=== PATIENT | male | born 1960 | race Caucasian/White ===

== ENCOUNTER 2019-01-02 12:06 | Outpatient (CLI) | payer MEDICAID ==
[~2019-01-02] VITALS: Ht 175.3 cm; Wt 54.9 kg
--- NOTE | ~2019-01-02 | HEMODYNAMI ---
PATIENT:ALYSSA GUPTA MEDICAL RECORD: [id number] : 56 LOCATION:[facility] ADMISSION DATE: 01/02/19 Generatedon:01/02/201914:51 Patient name: ALYSSA GUPTA Patient #: [id number] SSN: : 1 1960 Date of study: 01/02/2019 Page: Of Hemodynamic Procedure Report Patient Data Patient Demographics Procedure consent was obtained First Name: ALYSSA Gender: Male Last Name: ALONSO : 1960 Patient #: [id number] Age: 58 year(s) Race: Unknown Additional ID: [id number] Contact details [address]: [address] [place] [address] State: [place] City: [place] Zip code: [address] Past Medical History Allergies: No known allergies Admission Admission Data Admission Date: 01/02/2019 Admission Time: 12:06 Procedure Procedure Types Cath Procedure Diagnostic Procedure LHC LHC w/Coronaries PCI Procedure Coronary Stent Coronary Stent Initial Procedure Description Procedure Date Procedure Date: 01/02/2019 Procedure Start Time: 14:24 Procedure End Time: 14:47 Procedure Staff Name Function Guillermo Montoya MD Performing Physician Ena Garnica RT Monitor Agustina Garcia RT Scrub Manoj Araiza RT Scrub Kaleb Murray RN Nurse Procedure Data Cath Procedure Fluoroscopy Diagnostic fluoroscopy Total fluoroscopy Time: 4.9 time: 4.9 min min Diagnostic fluoroscopy Total fluoroscopy dose: 427 dose: 427 mGy mGy Contrast Material Contrast Material Type Amount (ml) Isovue 300 111 Entry Location Entry Primary Successful Side Size Upsize Upsize Entry Closure Succes sful Closure Location (Fr) 1 (Fr) 2 (Fr) Remarks Device Remarks Femoral Right 5 Fr 6 Fr Exoseal artery Short Estimated blood loss: 10 ml Diagnostic catheters Device Type Used For End Catheter Placement MULTIPACK JL 4.0 5Fr catheter MULTIPACK 3DRC 5Fr Procedure catheter MULTIPACK Pigtail 5 Fr Procedure catheter Procedure Complications No complications Procedure Medications Medication Administration Route Dosage Oxygen etCO2 Nasal cannula 2 l/min Heparin Flush Bag added to field 2 bags (1000units/500ml NS) 0.9% NaCl I.V. 100 ml/hr Lidocaine 2% added to field 20 Fentanyl I.V. 50 mcg Versed I.V. 1 mg Fentanyl I.V. 50 mcg Versed I.V. 1 mg Heparin Bolus I.V. 4000 units Integrilin (Bolus I.V. 5 ml 2mg/ml) Integrilin (Bolus wasted 5 ml 2mg/ml) Fentanyl I.V. 50 mcg Plavix P.O. 600 mg Hemodynamics Rest Heart Rate: 75 (bpm) Pressure Samples Time Site Value (mmHg) Purpose Heart Use Rate(bpm) 14:31 LV 124/6,6 EDP 75 Snapshots Pre Cath Intra NCS Post Cath Vital Signs Time Heart Resp SPO2 etCO2 NIBP (mmHg) Rhythm Pain Sedation Rate (ipm) (%) (mmHg) Status Level (bpm) 14:03:02 71 18 99 0 149/88(112) NSR 0 (11) 10(A) , No pain 14:07:16 75 16 100 26.3 132/88(100) NSR 0 (11) 10(A) , No pain 14:11:24 73 17 98 0 119/74(94) NSR 0 (11) 10(A) , No pain 14:15:25 73 16 97 21.8 131/88(108) NSR 0 (11) 10(A) , No pain 14:19:33 74 16 99 32.3 114/81(94) NSR 0 (11) 10(A) , No pain 14:23:35 69 17 99 34.6 121/79(96) NSR 0 (11) 10(A) , No pain 14:27:34 77 16 99 36.1 126/91(107) NSR 0 (11) 9(A) , No pain 14:31:40 74 17 99 32.4 114/79(95) NSR 0 (11) 9(A) , No pain 14:35:42 74 17 99 18 114/76(90) NSR 0 (11) 9(A) , No pain 14:39:45 73 16 99 33.1 110/74(88) NSR 0 (11) 9(A) , No pain 14:43:45 72 16 99 36.1 117/78(96) NSR 0 (11) 9(A) , No pain 14:47:47 74 17 99 30.8 128/81(94) NSR 0 (11) 9(A) , No pain Medications Time Medication Route Dose Verified Delivered Reason Notes Effectiveness by by 14:02:02 Oxygen etCO2 2 Guillermo Manuel Per physician Nasal l/min St Josh Murray RN cannula 14:02:10 Heparin Flush added 2 Guillermo Kaleb used for Bag to bags St Josh Murray RN procedure (1000units/500ml field CHARLES NS) 14:02:18 0.9% NaCl I.V. 100 Guillermo Kaleb Per physician ml/hr St Josh Murray RN, MD 14:02:29 Lidocaine 2% added 20ml Guillermo Manuel for local to vial St Josh Murray RN anesthetic field CHARLES 14:23:23 Fentanyl I.V. 50 Guillermo Kaleb for sedation [facility] Josh Murray RN, MD 14:23:30 Versed I.V. 1 mg Guillermo Manuel for sedation St Josh Murray RN, MD 14:31:35 Fentanyl I.V. 50 Guillermo Oviedoy for sedation [facility] Josh Murray RN, MD 14:31:39 Versed I.V. 1 mg Guillermo Manuel for sedation St Josh Murray RN, MD 14:34:01 Heparin Bolus I.V. 4000 Guillermo Manuel for units St Josh Murray RN anticoagulation 14:34:11 Integrilin I.V. 5 ml Guillermo Manuel for (Bolus 2mg/ml) St Josh Murray RN antiplatelet MD therapy 14:37:26 Fentanyl I.V. 50 uGillermo Manuel for sedation [facility] Josh Murray RN, MD 14:46:59 Integrilin wasted 5 ml Guillermo Manuel for (Bolus 2mg/ml) St Josh Murray RN antiplatelet MD therapy 14:48:30 Plavix P.O. 600 Guillermo Manuel for mg St Josh Murray RN antiplatelet MD therapy Procedure Log Time Note 13:18:01 Diagnostic Cath Status : Elective 13:20:47 Kaleb Murray RN sent for patient. Start room use. 13:20:48 Time tracking: Regular hours (M-F 7:00 - 5:00) 13:20:52 Plan of Care:Hemodynamics will remain stable., Cardiac rhythm will remain stable., Comfort level will be maintained., Respiratory function will remain adequate., Patient/ family verbilizes understanding of procedure., Procedure tolerated without complication., Recovers from procedure without complications.. 13:55:54 Patient received from Pre/Post Procedure Room to CCL 2 Alert and oriented. Tansferred to table in Supine position. 13:55:56 Warm blankets applied, and nilson hugger turned on for patient comfort. 13:55:56 Correct patient and procedure confirmed by team. 13:55:58 Signed procedure consent form obtained from patient. 13:55:59 ECG and BP/O2 sat monitors applied to patient. 13:56:01 Full Disclosure recording started 13:56:47 H&P Date Dictated: 12/18/2018 Within 30 days and on chart., H&P Addendum completed by physician on day of procedure. (MUST COMPLETE FOR ALL OUTPATIENTS). 13:56:49 Pre-procedure instructions explained to patient. 13:56:50 Pre-op teaching completed and patient verbalized understanding. 13:56:53 Family in patients room. 13:56:55 Patient NPO since Midnight. 13:58:12 Patient allergic to No known allergies 13:58:14 Is the patient allergic to Iodine/contrast media? No. 13:58:15 Is patient on blood thinner?No 13:58:18 Patient diabetic? No. 13:58:22 Previous problem with sedation/anesthesia? No ? 13:58:28 Snore? Yes 13:58:30 Sleep apnea? No 13:58:31 Deviated septum? No 13:58:32 Opens mouth fully? Yes 13:58:32 Sticks out tongue? Yes 13:58:39 Airway obstruction? Yes possible COPD 13:58:42 Dentures? No ? 13:58:45 Pre procedure: right dorsailis pedis pulse 2+ Normal; easily identifiable; not easily obliterated 13:58:47 Patient pain scale 0/10 ?. 13:58:53 IV patent on arrival in left forearm with 0.9% NaCl at KVO. 13:58:55 Lab results completed and on chart. 13:58:58 Right groin area was prepped with chlora-prep and draped in sterile fashion 13:58:59 Alarms reviewed by R. N. 13:58:59 Sharps counted by scrub and verified by R.N. 13:59:03 Use device set Femoral Dx 13:59:03 ACIST Syringe (68078) opened to sterile field. 13:59:04 Bag Decanter (2002S) opened to sterile field. 13:59:04 Medline Cath Pack ([id number]) opened to sterile field. 13:59:05 DIAGNOSTIC WIRE .035 260cm J wire (455361) opened to sterile field. 13:59:06 ACIST Hand Control (05042) opened to sterile field. 13:59:07 ACIST Manifold (44870) opened to sterile field. 13:59:08 DIAGNOSTIC Multipack 5Fr catheter set (QU5130) opened to sterile field. 13:59:10 SHEATH 5FR Henrietta (KCT020) opened to sterile field. 13:59:13 Tegaderm 4 x 4 (1626W) opened to sterile field. 14:01:53 Vital chart was started 14:02:02 Oxygen 2 l/min etCO2 Nasal cannula was administered by Kaleb Murray RN; Per physician; 14:02:10 Heparin Flush Bag (1000units/500ml NS) 2 bags added to field was administered by Kaleb Murray RN; used for procedure; 14:02:18 0.9% NaCl 100 ml/hr I.V. was administered by Kaleb Murray RN; Per physician; 14:02:29 Lidocaine 2% 20ml vial added to field was administered by Kaleb Murray RN; for local anesthetic; 14:13:38 Physician arrived 14:13:38 --------ALL STOP TIME OUT------ 14:13:38 Final Timeout: patient, procedure, and site verified with staff and physician. All members of the team are in agreement. 14:13:41 Right groin site verified by team. 14:13:47 Fire Safety Assessment: A--An alcohol-based skin anteseptic being used preoperatively., C--Open oxygen or nitrous oxide is being used., D--An ESU, laser, or fiber-optic light is being used. 14:13:56 Physical assessment completed. ASA score P 2 - A patient with mild systemic disease as per Guillermo Montoya MD. 14:14:00 Sedation plan: IV Moderate Sedation Medication:Versed, Fentanyl 14:21:59 Zero performed for pressure channel P1 14:23:23 Fentanyl 50 mcg I.V. was administered by Kaleb Murray RN; for sedation; 14:23:30 Versed 1 mg I.V. was administered by Kaleb Murray RN; for sedation; 14:24:11 Procedure started. 14:24:28 Local anesthetic to right femoral artery with Lidocaine 2% by Guillermo Montoya MD.INITIAL ACCESS ONLY 14:24:37 A 5 Fr sheath was inserted into the Right Femoral artery 14:26:10 A MULTIPACK JL 4.0 5Fr catheter was advanced over the wire and used for . 14:26:18 LCA angiography performed. 14:27:26 Catheter removed. 14:27:34 A MULTIPACK 3DRC 5Fr catheter was advanced over the wire and used for Procedure. 14:28:31 RCA angiography performed. 14:29:22 Catheter removed. 14:29:31 A MULTIPACK Pigtail 5 Fr catheter was advanced over the wire and used for Procedure. 14:30:49 LV gram done using GILES 14:31:35 Fentanyl 50 mcg I.V. was administered by Kaleb Murray RN; for sedation; 14::39 Versed 1 mg I.V. was administered by Kaleb Murray RN; for sedation; 14:32:52 GUIDE 6FR HS I catheter (LA6HSI) opened to sterile field. 14:32:52 SHEATH 6FR Henrietta (RXV647) opened to sterile field. 14:32:53 WHISPER 300cm guide wire ([id number]) opened to sterile field. 14:32:53 INFLATOR Merit BasixCompak (CM2767) opened to sterile field. 14:33:01 Proceeding to intervention. 14:33:11 Sheath upsized to a 6 Fr Short. 14:33:21 6 Fr HS1 guide catheter was inserted over the wire 14:33:30 Whisper wire advanced. 14:33:32 Wire advanced across lesion. 14:34:01 Heparin Bolus 4000 units I.V. was administered by Kaleb Murray RN; for anticoagulation; 14:34:11 Integrilin (Bolus 2mg/ml) 5 ml I.V. was administered by Kaleb Murray RN; for antiplatelet therapy; 14:37:26 Fentanyl 50 mcg I.V. was administered by Kaleb Murray RN; for sedation; 14:39:11 Place stent Inflation Number: 1 A INTEGRITY OTW 3.5 X 12 stent ([id number]) was prepped and advanced across the Dist RCA. The stent was deployed at 14 DARLEEN for 0:22 (min:sec). 14:40:10 Stent catheter was removed intact over wire. 14:42:17 Place stent Inflation Number: 1 A INTEGRITY OTW 3.0 X 18 stent ([id number]) was prepped and advanced across the Mid RCA. The stent was deployed at 14 DARLEEN for 0:27 (min:sec). 14:43:54 EXOSEAL 6Fr (EX600) opened to sterile field. 14:43:59 Wire removed. 14:44:00 Guide catheter removed. 14:44:10 Sheath removed intact; hemostasis achieved with Exoseal to the Right Femoral artery. 14:44:12 Procedure ended.(Physican Out) 14:44:22 Fluoroscopy time 04.90 minutes. 14:44:26 Fluoroscopy dose: 427 mGy 14:44:26 Flurop Dose total: 427 14:46:39 Contrast amount:Isovue 300 111ml. 14:46:41 Sharps counted by scrub and verified by R.N. 14:46:50 Insertion/operative site no bleeding no hematoma. 14:46:53 Post right femoral artery:stable 14:46:55 Post Procedure Pulses reassessed and unchanged 14:46:57 Post-procedure physical assessment completed. ASA score P 2 - A patient with mild systemic disease as per Guillermo Montoya MD. 14:46:59 Integrilin (Bolus 2mg/ml) 5 ml wasted was administered by Kaleb Murray RN; for antiplatelet therapy; 14:47:00 Post procedure rhythm: unchanged. 14:47:03 Estimated blood loss: 10 ml 14:47:05 Post procedure instruction explained to patient.Patient verbalizes understanding. 14:47:22 Procedure type changed to Cath procedure, Diagnostic procedure, LHC, LHC w/Coronaries, PCI procedure, Coronary Stent, Coronary Stent Initial 14:47:23 Procedure and supply charges have been captured, reviewed, submitted and are correct. 14:47:39 Procedure Complication : No complications 14:47:41 Vital chart was stopped 14:47:42 See physician's report for complete and final results. 14:47:44 Report given to Pre/Post Procedure Room. 14:47:47 Patient transfered to Pre/Post Procedure Room with Stretcher. 14:47:50 Procedure ended. 14:47:50 Full Disclosure recording stopped 14:47:53 End room use (Document Last) 14:47:53 End room use (Document Last) 14:48:30 Plavix 600 mg P.O. was administered by Kaleb Murray RN; for antiplatelet therapy; Intervention Summary Intervention Notes Time ActionType Lesion and Equipment Action# Pressure Duration Attributes Used 14:39:11 Place stent Dist RCA INTEGRITY 1 14 00:22 OTW 3.5 X 12 stent ([id number]) 14:42:17 Place stent Mid RCA INTEGRITY 1 14 00:27 OTW 3.0 X 18 stent ([id number]) Device Usage Item Name Manufacture Quantity Catalog Hospital Part Current Minimal L ot# / Number Charge Number Stock Stock Serial# Code ACIST Acist 1 89735 563184 032446 445006 20 Syringe Medical (72830) Systems Inc Bag Microtek 1 2001S 032262 81747 170509 5 Decanter Medical Inc. () Medline Medline 1 [id number] 202880 11541 074031 5 Cath Pack ([id number]) DIAGNOSTIC St Noel 1 257899 003219 046187 939825 30 WIRE .035 260cm J wire (873586) ACIST Hand Acist 1 43150 845391 528862 090724 5 Control Medical (63057) Systems Inc ACIST Acist 1 18457 913618 824732 343917 5 Manifold Medical (65888) Systems Inc DIAGNOSTIC Cardinal 1 VO9421 766120 24359 582463 30 Multipack Health 5Fr catheter set (RL7293) SHEATH 5FR Terumo 1 AQJ563 110122 685782 286367 5 Henrietta (PUU439) Tegaderm 4 3M 1 1626W 745887 372050 697117 5 x 4 (1626W) MULTIPACK Cardinal 1 989677 5 JL 4.0 5Fr Health catheter MULTIPACK Cardinal 1 740874 5 3DRC 5Fr Health catheter MULTIPACK Cardinal 1 875034 5 Pigtail 5 Health Fr catheter GUIDE 6FR Medtronic 1 LA6HSI 539634 91138 441438 1 HS I catheter (LA6HSI) SHEATH 6FR Terumo 1 PPJ357 071145 161055 236886 40 Henrietta (HYW596) WHISPER Riojas 1 [id number] 550693 297341 508632 5 300cm guide Vascular wire ([id number]) INFLATOR Merit 1 KO3720 600756 030015 888826 15 [facility] Medical BasixCompak (SM4329) INTEGRITY Medtronic 1 [id number] 047022 952385 801902 1 0 [id number] OTW 3.5 X 12 stent ([id number]) INTEGRITY Medtronic 1 [id number] 580737 129526 061619 1 0 [id number] OTW 3.0 X 18 stent ([id number]) EXOSEAL 6Fr Cardinal 1 EX600 717907 648109 046097 10 (EX600) Health Signature Audit [place] Stage Time Signature Unsigned Intra-Procedure 01/02/2019 Ena Garnica 2:51:24 PM RT(R) Signatures Monitor : Ena Garnica Signature : RT Date : Time : [id number] [place] [address]
[~2019-01-02 12:06] MED LIST: BAYER ASPIRIN325 MG PO; CATAPRES0.1 MG PO; KLONOPIN1 MG; MAGNESIUM GLUC500 M1 PO; MULTIPLE VITAMI1 TA1 PO; NORVASC10 MG PO; PLAVIX75 MG PO; PRINIVIL20 MG PO
[2019-01-02] MEDS ORDERED: TOPROL XL50 MG PO (12:20)
[2019-01-02 12:25] VITALS: BP 126/89; BMI 17.9
[2019-01-02 12:47] LABS: BASOPHILS 1.1 % (0-2); EOSINOPHILS 1.4 % (0-7); HEMATOCRIT 38.7 % (42.0-54.0); HEMOGLOBIN 13.1 g/dL (13.5-17.5); IMMATURE GRANULOCYTES 0.2 % (0-5); LYMPHOCYTES 34.5 % (15-50); MCH 28.2 pg (26.0-34.0); MCHC 33.9 g/dL (31.0-37.0); MCV 83.2 fL (80.0-100.0); MEAN PLATELET VOLUME 9.1 fL (7.4-10.4); MONOCYTES 8.8 % (2-11); RBC 4.65 10x6/uL (4.20-6.10); RDW 17.7 % (11.5-14.5); WBC 8.8 10x3/uL (4.8-10.8)
[2019-01-02 12:49] LABS: PLATELET COUNT 352 10x3/uL (130-400)
[2019-01-02 13:02] LABS: CALC OSMOLALITY 274 mosm/kg (275-300); CALCIUM 8.8 mg/dL (8.5-10.1); CHLORIDE - SERUM 101 mmol/L (98-107); GLUCOSE 83 mg/dL (74-106); POTASSIUM - SERUM 4.4 mmol/L (3.5-5.1); SODIUM 137 mmol/L (136-145); UREA NITROGEN 17 mg/dL (7-18); eGFR NON AFRICAN AMERICAN 81 mL/min (90-120)
--- NOTE | 2019-01-02 15:25 | NUR ---
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 VS WNL. RIGHT GROIN STABLE WITH FEMSTOP ON. HAS GOTTEN OUT OF BED TO USE BR WHEN I LEFT THE ROOM. ENCOURAGED THE IMPORTANC OF BR TILL 8PM. CALL LIGHT IN REACH. WILL CONT. PLAN OF CARE.
[2019-01-02 15:29] VITALS: BP 141/92; BMI 17.9
--- NOTE | 2019-01-02 16:46 | NUR ---
FEMSTOP DCD WITHOUT BLEEDING OR HEMATOMA NOED.
[2019-01-02 17:44] VITALS: BP 136/91
--- NOTE | 2019-01-02 19:37 | NUR ---
RESUMED CARE OF PT, LYING IN BED RESPIRATIONS EVEN AND UNLABORED ON ROOM AIR. LEFT FOREARM INFUSING NS @ 100. 66 SR ON TELEMETRY. RIGHT GROIN WNL, PEDAL PULSE PALPABLE. BEDREST UP AT 1999. NO NEEDS VOICED AT THIS TIME. CALL LIGHT IN REACH. SEE NURSE ASSESSMENT.
[2019-01-02 20:00] VITALS: BP 126/82
[2019-01-03 00:36] VITALS: BP 122/79
[2019-01-03 04:00] VITALS: BP 121/75
[2019-01-03 07:49] VITALS: BP 130/92
[2019-01-03] MEDS ORDERED: PLAVIX75 MG PO (09:28)
[2019-01-03 10:02] VITALS: Ht 175.3 cm; Wt 54.9 kg
--- NOTE | 2019-01-03 10:27 | MORECARE ---
CASE MANAGEMENT DISCHARGE SUMMARY PATIENT: ALYSSA GUPTA UNIT: [id number] ADM DATE: 01/02/19 AGE: 58 : 56 SEX: M ROOM/BED: D.2116 AUTHOR: LAURA GARCIA PHYSICIAN: REFERRING PHYSICIAN: JAY POTTS MD DATE OF SERVICE: 01/03/19 Discharge Plan Patient Name: [facility]YSSA [facility] [facility] 1960 Planned Disposition: Home Anticipated Discharge Date: 01/03/19 Discharge Date: Expected LOS: 1 Initial Reviewer: [email or web address] Initial Review Date: 01/03/2019 Generated: 01/03/19 11:27 am Patient Name: ALYSSA GUPTA Page 18601 at 1027 All edits/amendments must be made on the electronic document DICTATION DATE: 01/03/19 1027 MANUFACTURING PLANT TECHNICIAN: TIFFANY 01/03/19 1027 RPT#: [id number] DC DATE: STATUS: REG I [facility] [address] [place] [address] END OF REPORT
--- NOTE | 2019-01-03 11:08 | MORECARE ---
CASE MANAGEMENT DISCHARGE SUMMARY PATIENT: ALYSSA GUPTA UNIT: [id number] ADM DATE: 01/02/19 AGE: 58 : 56 SEX: M ROOM/BED: D.2116 AUTHOR: LAURA GARCIA PHYSICIAN: REFERRING PHYSICIAN: JAY POTTS MD DATE OF SERVICE: 01/03/19 Discharge Plan Patient Name: ALYSSA GUPTA [facility] [facility] 1960 Planned Disposition: Home Anticipated Discharge Date: 01/03/19 Discharge Date: Expected LOS: 1 Initial Reviewer: [email or web address] Initial Review Date: 01/03/2019 Generated: 01/03/19 12:07 pm DCPIA - Discharge Planning Initial Assessment Updated by [email or web address]: Unruly Dixon on 01/03/19 11:01 am * Is the patient Alert and Oriented? Yes * How many steps to enter\exit or inside your home? * PCP RIGOBERTO GRANT FOR DR. TY IN [place] * Pharmacy [facility] * Preadmission Environment Home Alone * ADLs Independent * Equipment Cane * Other Equipment NO MEDICAL EQUIPMENT PROVIDER PREFERENCE * List name and contact numbers for known caregivers / representatives who currently or will assist patient after discharge: CASA WATTS, SISTER, * Verbal permission to speak to the caregivers and representatives has been obtained from the patient. N/A * Community resources currently utilized None * Please name any agencies selected above. NONE * Additional services required to return to the preadmission environment? No * Can the patient safely return to the preadmission environment? Yes * Has this patient been hospitalized within the prior 30 days at any hospital? No Last DP export: 01/03/19 9:27 am Patient Name: ALYSSA GUPTA Page 41958 at 1108 All edits/amendments must be made on the electronic document DICTATION DATE: 01/03/191106 POLE FRAME CONSTRUCTION WORKER: TIFFANY 01/03/191106 RPT#: [id number] DC DATE: STATUS: REG [facility] [address] [place] [address] END OF REPORT
--- NOTE | 2019-01-03 11:23 | MORECARE ---
CASE MANAGEMENT DISCHARGE SUMMARY PATIENT: ALYSSA GUPTA UNIT: [id number] ADM DATE: 01/02/19 AGE: 58 : 56 SEX: M ROOM/BED: D.2116 AUTHOR: RADHA,DOC PHYSICIAN: REFERRING PHYSICIAN: JAY POTTS MD DATE OF SERVICE: 01/03/19 Discharge Plan Patient Name: ALYSSA GUPTA Facility: [facility]:[place] : 1960 Planned Disposition: Home Anticipated Discharge Date: 01/03/19 Discharge Date: Expected LOS: 1 Initial Reviewer: [email or web address] Initial Review Date: 01/03/2019 Generated: 01/03/19 12:23 pm Comments DCP- Discharge Planning Updated by [email or web address]: Unruly Dixon on 01/03/19 10:[address] Patient Name: ALYSSA GUPTA Admission Status: Elective Accout number: [id number] Admission Date: 01-02-2019 : 1960 Admission Diagnosis: Attending: JAY POTTS Current LOS: 1 Anticipated DC Date: 01-03-2019 Planned Disposition: Home Primary Insurance: MEDICAID [place] Discharge Planning Comments: CM MET WITH PT IN ROOM TO DISCUSS DISCHARGE PLANNING AND NEEDS. PT REPORTS LIVING AT HOME INDEPENDENTLY AND ALONE IN [place] [facility] WITH NO RUNNING WATER OR ELECTRICITY. PT HAULS WATER FROM [employer], USES GENERATOR FOR ELECTRICTY AND PROPANE HEATER FOR HEAT. PT HAS A CANE WITH NO MEDICAL EQUIPMENT PROVIDER PREFERENCE. PT HAS NO OUTSIDE SERVICES ASSISTING IN THE HOME. CM DISCUSSED AVAILABILITY OF HOME HEALTH, REHAB SERVICES AND MEDICAL EQUIPMENT. PT DENIES DISCHARGE NEEDS OTHER THAN NEEDING RIDE HOME. PT REPORTS THE [employer] BLADDER CHANGER GAVE HIM A CARD WITH THE PHONE NUMBER TO CALL AND THE NURSE TOOK IT AND HE DOES NOT HAVE THE NUMBER TO CALL FOR [facility]. PT ASKED CM TO CALL MEDICAID TRANSPORTATION AND OBTAIN A RIDE HOME FOR HIM. CM CALLED [facility], , WAS NOTIFIED BY [facility] THAT CM WILL NEED TO CALL PROVIDER, [facility] [address]. CM CALLED [facility] [address], , SPOKE TO RO WHO ADVISED THAT THE TRANSPORT WILL NEED TO BE SCHEDULED WITH [facility]. CM [facility] MEDICAID TRANSPORT, [facility] SCHEDULED [facility] FOR TODAY. PT NOTIFIED AND IN AGREEMENT AND WILL WAIT IN ROOM. MEDICAID BUS WILL CALL NURSES STATION WHEN THEY ARRIVE DOWNSTAIRS TO [facility] PT TODAY FOR TRANSPORT HOME. Data Warehouse Architect: Unruly Dixon DCPIA - Discharge Planning Initial Assessment Updated by [email or web address]: Unruly Dixon on 01/03/19 11:01 am * Is the patient Alert and Oriented? Yes * How many steps to enter\exit or inside your home? * PCP RIGOBERTO GRANT FOR DR. TY IN [place] * Pharmacy [facility] * Preadmission Environment Home Alone * ADLs Independent * Equipment Cane * Other Equipment NO MEDICAL EQUIPMENT PROVIDER PREFERENCE * List name and contact numbers for known caregivers / representatives who currently or will assist patient after discharge: CASA WATTS, SISTER, * Verbal permission to speak to the caregivers and representatives has been obtained from the patient. N/A * Community resources currently utilized None * Please name any agencies selected above. NONE * Additional services required to return to the preadmission environment? No * Can the patient safely return to the preadmission environment? Yes * Has this patient been hospitalized within the prior 30 days at any hospital? No Last DP export: 01/03/19 10:07 am Patient Name: ALYSSA GUPTA Page 48923 at 1123 All edits/amendments must be made on the electronic document DICTATION DATE: 01/03/191121 SERVICE ESTABLISHMENT ATTENDANT: TIFFANY 01/03/191121 RPT#: [id number] CT DATE: STATUS: REG [facility] [address] [place] [address] END OF REPORT
--- NOTE | 2019-01-03 12:22 | OP ---
PATIENT NAME: ALYSSA GUPTA MEDICAL RECORD: [id number] :[birth year] LOCATION:D.M2 D.6 ADMISSION DATE: SURGEON: JAY POTTS MD DATE OF OPERATION: 01/02/2019 PROCEDURE: Left heart catheterization, selective coronary angiography, right femoral artery approach. CATHETERS: A 5-Anguillan sheath, 5/4 left and right Peyton, 5/4 pig. The procedure was well tolerated. The patient was returned to the miller. Sheath was removed. ExoSeal device was placed. FINDINGS: Left ventriculography in 30-degree GILES view: Normal wall motion. Normal systolic function. CORONARY ANATOMY: LEFT MAIN: Left main is free of disease. LAD: Free of disease in the diagonal system. CIRCUMFLEX: Free of disease in the marginal system. RIGHT CORONARY ARTERY: It has 2 sequential stenoses, one proximally of 90% and one distally of 80%. IMPRESSION: Single vessel disease. PLAN: Intervention momentarily. DESCRIPTION OF PROCEDURE: A 5-Anguillan sheath was changed for a 6-Anguillan sheath. Hockey stick with side holes provided excellent guide catheter support. Both lesions were crossed with a Whisper wire. Distal lesion was addressed with 3.5 x 14 Integrity nondrug-eluting stent and proximal was addressed with a 3.0 x 18 nondrug-eluting stent, both up to 14 atmospheres for 45 seconds. Final angiography shows resolution of distal 80% stenosis and proximal 90% stenosis with no significant residual. VOLODYMYR flow was 3 throughout the procedure. Sheath was closed with ExoSeal device. Plavix was loaded in the lab. TRANSINT:[id number] Voice Confirmation ID: [id number] DOCUMENT ID: [id number] JAY POTTS MD at 1222 CC: [id number] DICTATION DATE: 01/02/19 1452 CLINICAL MEDICAL ASSISTANT: 01/02/19 1743 REG [facility] [address] [place] [address]
--- NOTE | 2019-01-03 18:08 | NUR ---
IV AND TELEMETRY DCD. DC PLANS GIVEN. UNDERSTANDING VOICED. ESCORTED TO [facility] BY W/C.
== END 2019-01-03 18:09 | disposition home or self-care (01) ==
LOC: D.CATH 12:06 → D.M2 15:04 → D.CATH 01-03 18:09
PROVIDERS: Internal Medicine Interventional Cardiology
DX: I25.119 Atherosclerotic heart disease of native coronary artery with unspecified angina pectoris (principal); Z01.812 Encounter for preprocedural laboratory examination